=== PATIENT | female | born 1955 | race Caucasian/White ===

== ENCOUNTER → 2019-07-03 | Outpatient (CLI) | payer OTHER ==
--- NOTE | 2019-07-03 14:59 | 2DMMODE ---
[facility] [address] [place] [address] 2 D/M-MODE ECHOCARDIOGRAM Name: MONIK SALAZAR [place] Room #: REG [facility]#: [id number] ������������� Admission: 07/03/19 ������������� Attend Phys: Dequan Lopez Discharge: ��� ������������� ��� Date of : 59 Date of Service: 07/03/19 1459 �� Report #: [id number] �������� ��������������������������������������������[id number] THIS REPORT FOR: //name// APPROVED REPORT Study performed: 07/03/2019 13:06:22 EXAM: Comprehensive 2D, Doppler, and color-flow Echocardiogram Patient Location: Out-Patient Room #: Echo lab 2 Status: routine BSA: 1.91 HR: 79 bpm BP: 114/76 mmHg Rhythm: NSR Other Information Study Quality: Good Indications Palpitations Hypertension/HDD 2D Dimensions RVDd: 31.01 mm IVSd: 9.89 (7-11mm) LVOT Diam: 21.81 (18-24mm) LVDd: 45.93 mm PWd: 9.40 (7-11mm) Ascending Ao: 32.74 (22-36mm) LVDs: 30.91 (25-40mm) Aortic Root: 28.42 mm IVC: 23.00 mm Volumes Left Atrial Volume (Systole) Single Plane 4CH: 34.36 mL Single Plane 2CH: 60.30 mL LA ESV Index: 26.00 mL/m2 Aortic Valve AoV Peak Gregory.: 1.28 m/s AO Peak Gr.: 6.56 mmHg LVOT Max P.52 mmHg LVOT Max V: 0.94 m/s CHANTELLE Vmax: 2.74 cm2 Mitral Valve E/A Ratio: 1.1 MV Decel. Time: 144.18 ms [facility] [address] [place] [address] 2 D/M-MODE ECHOCARDIOGRAM Name: MONIK SALAZAR [place] Room #: REG [facility]#: [id number] ������������� Admission: 07/03/19 ������������� Attend Phys: Dequan Lopez Discharge: ��� ������������� ��� Date of : 59 Date of Service: 07/03/19 1459 �� Report #: [id number] �������� ��������������������������������������������[id number] MV E Max Gregory.: 0.80 m/s MV A Gregory.: 0.76 m/s MV PHT: 41.81 ms IVRT: 78.43 ms Pulmonary Valve PV Peak Gregory.: 0.87 m/s PV Peak Gr.: 3.06 mmHg Pulmonary Vein P Vein S: 0.63 m/s P Vein A: 0.28 m/s P Vein D: 0.33 m/s P Vein A Dur.: 120.0 msec P Vein S/D Ratio: 1.91 Tricuspid Valve TR Peak Gregory.: 2.20 m/s TR Peak Gr.: 19.34 mmHg PA Pressure: 29.00 mmHg Left Ventricle The left ventricle is normal size. There is normal LV segmental wall motion. There is normal left ventricular wall thickness. Left ventricular systolic function is normal. The left ventricular ejection fraction is within the normal range. LVEF is 55-60%. The left ventricular diastolic function is normal. Right Ventricle The right ventricle is normal size. The right ventricular systolic function is normal. Atria The left atrium size is normal. The right atrium size is normal. Aortic Valve The aortic valve is normal in structure. No aortic regurgitation is present. There is no aortic valvular stenosis. Mitral Valve The mitral valve is normal in structure. There is no mitral valve regurgitation noted. No evidence of mitral valve stenosis. Tricuspid Valve The tricuspid valve is normal in structure. There is trace tricuspid regurgitation. Estimated PAP 29 mmHg. There is no pulmonary hypertension. [address] [address] 2 D/M-MODE ECHOCARDIOGRAM Name: SARA SALAZARHINA GARCIASE [place] Room #: REG CL [facility]#: [id number] ������������� Admission: 07/03/19 ������������� [facility]: ��� ������������� ��� Date of : 59 Date of Service: 07/03/19 1459 �� Report #: [id number] �������� ��������������������������������������������[id number] Pulmonic Valve The pulmonary valve is normal in structure. There is no pulmonic valvular regurgitation. Great Vessels The aortic root is normal in size. IVC is normal in size and collapses >50% with inspiration. Pericardium There is no pericardial effusion. <Conclusion> The left ventricle is normal size. There is normal left ventricular wall thickness. LVEF is 55-60%. The aortic valve is normal in structure. The mitral valve is normal in structure. The tricuspid valve is normal in structure. There is trace tricuspid regurgitation. Estimated PAP 29 mmHg. There is no pulmonary hypertension. The pulmonary valve is normal in structure. There is no pericardial effusion. ��������������������������������������������� <ELECTRONICALLY SIGNED> ���������������������������������������� By: Cristino Choudhary MD ��������������������������������������������� 07/03/19 1459 1459 1459 Cristino Choudhary MD /INF
== END ==
LOC: CV 10:06
DX: I65.23 Occlusion and stenosis of bilateral carotid arteries (principal); I10 Essential (primary) hypertension; R00.2 Palpitations; Z88.8 Allergy status to other drugs, medicaments and biological substances